=== PATIENT | female | born 2005 ===

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

== ENCOUNTER → 2025-06-20 09:43 | Outpatient (BNVA) | payer MEDICAID, SELFPAY | PROVIDERS: PCP Family Medicine; Visit Provider Obstetrics & Gynecology | DX: N91.2 Amenorrhea, unspecified (principal) | CPT/HCPCS: 81025 ==

== ENCOUNTER 2025-07-09 08:28 | Outpatient (CLI) | payer MEDICAID, SELFPAY ==
--- NOTE | 2025-07-09 08:30 | US_ITS ---
WS: [id number] EARLY OBSTETRICAL ULTRASOUND (<14 WEEKS). HISTORY: Z34.90 - Encounter for supervision of normal , u... COMPARISON: None available. Single intrauterine gestational sac is identified. Cardiac activity at 172 BPM. Rillito-rump length measures 2.5 cm which corresponds to a gestation of 9w1d. Normal-appearing yolk sac and amnion demonstrated. No subchorionic hemorrhage. No free fluid. LEFT ovary measures 2.7 x 1.9 x 2.5 cm. RIGHT ovary measures 2.5 x 1.9 x 3.1 cm. Normal vascularity. US/US OB <= 14 weeks fetus [id number] IMPRESSION: 1. Single intrauterine gestation of 9w1d with an EDC of 02/10/2026. 2. cardiac activity, 172 bpm.
== END 2025-07-09 08:29 | disposition home or self-care (01) ==
LOC: RAD 08:30
PROVIDERS: PCP Family Medicine; Visit Provider Obstetrics & Gynecology
DX: Z34.90 Encounter for supervision of normal pregnancy, unspecified, unspecified trimester (principal)
CPT/HCPCS: 76801

== ENCOUNTER → 2025-07-18 13:42 | Outpatient (BNVA) | payer MEDICAID, SELFPAY | PROVIDERS: PCP Family Medicine; Visit Provider Obstetrics & Gynecology | DX: Z34.90 Encounter for supervision of normal pregnancy, unspecified, unspecified trimester (principal) | CPT/HCPCS: 80307; 84315; 85025; 86592; 86762; 86803; 86850; 86900; 87086; 87340; 87491; 87591; 87661; 87806 ==

== ENCOUNTER → 2025-08-06 10:42 | Outpatient (BNVA) | payer MEDICAID, SELFPAY | PROVIDERS: PCP Family Medicine; Visit Provider Obstetrics & Gynecology | DX: Z34.90 Encounter for supervision of normal pregnancy, unspecified, unspecified trimester (principal); Z01.419 Encounter for gynecological examination (general) (routine) without abnormal findings | CPT/HCPCS: 84315; 88175 ==

== ENCOUNTER → 2025-09-02 14:09 | Outpatient (BNVA) | payer MEDICAID, SELFPAY | PROVIDERS: PCP Family Medicine; Visit Provider Nurse Practitioner Women's Health | DX: Z34.90 Encounter for supervision of normal pregnancy, unspecified, unspecified trimester (principal) | CPT/HCPCS: 82105; 84315 ==

== ENCOUNTER → 2025-10-01 09:37 | Outpatient (BNVA) | payer MEDICAID, SELFPAY | PROVIDERS: PCP Family Medicine; Visit Provider Obstetrics & Gynecology | DX: O26.892 Other specified pregnancy related conditions, second trimester (principal); Z67.91 Unspecified blood type, Rh negative | CPT/HCPCS: 84315 ==